=== PATIENT | female | born 1935 | race Caucasian/White ===

== ENCOUNTER 2018-07-14 09:40 | Emergency (ER) | payer MEDICARE, OTHER ==
[~2018-07-14] VITALS: Ht 154.9 cm; Wt 56.8 kg
[~2018-07-14 09:40] MED LIST: LOVASTATIN PO; TRIAMTERENE PO
[2018-07-14 09:44] VITALS: Ht 154.9 cm; Wt 56.8 kg
[2018-07-14] MEDS ORDERED: SOD CHLORIDE 0.9% 1,000 ML IV STA (10:06)
[2018-07-14] MEDS ORDERED: ASPI-817 PO (10:28)
[2018-07-14] MEDS ORDERED: SIMV40TA2 PO (10:29)
[2018-07-14] MEDS ORDERED: AMLO5TAB4 PO (10:29)
[2018-07-14] MEDS ORDERED: CHOL100062 PO (10:29)
[2018-07-14] MEDS ORDERED: UBID100C24 PO (10:30)
[2018-07-14] MEDS ORDERED: MECLIZINE 12.5 MG TAB PO ONE (10:30)
[2018-07-14] MEDS ORDERED: MECL12.574 PO (11:39)
[2018-07-14 12:21] VITALS: BP 148/88; PULSE 74; RESP 19
--- NOTE | 2018-07-14 12:57 | ERD ---
ER Documentation Chief Complaint Chief Complaint dizziness with nausea x yesterday HX of Vertigo HPI Patient is an 82-year-old female with hypertension and vertigo who presents with "extreme vertigo". The patient says that she cannot look or move without having symptoms. She got sweaty and pale. The symptoms started yesterday and were worse last night. She said that she tried her amlodipine this morning. She said that she feels better now and that the spinning has stopped. ROS All systems reviewed and are negative except as per history of present illness. Medications Home Meds Active Scripts Meclizine Hcl* (Antivert*) 12.5 Mg Tab, 25 MG PO Q6H PRN for DIZZINESS, #20 TAB Prov:VALERI SHAFER MD 07/14/18 Reported Medications Ubidecarenone (Coq-10) Unknown Strength Capsule, 1 CAP PO DAILY, CAP 07/14/18 Cholecalciferol* (Vitamin D3*) Unknown Strength Tablet, 1 TAB PO DAILY, TAB 07/14/18 Simvastatin* (Zocor*) 40 Mg Tablet, 40 MG PO QHS, #30 TAB 07/14/18 Amlodipine Besylate* (Norvasc*) 5 Mg Tablet, 5 MG PO DAILY, TAB 07/14/18 Aspirin* (Aspirin* EC) 81 Mg Tablet.dr, 81 MG PO DAILY, TAB 07/14/18 Discontinued Reported Medications [Lovastatin] No Conflict Check, PO 05/12/11 [Triamterene] No Conflict Check, PO 05/12/11 Allergies Allergies: Coded Allergies: No Known Drug Allergies (Verified Allergy, Unknown, 07/14/18) PMhx/Soc History of Surgery: Yes (HYSTRECTOMY) Anesthesia Reaction: No Hx Neurological Disorder: No Hx Respiratory Disorders: No Hx Cardiac Disorders: Yes (HYPERTENSION, HIGH CHOLESTEROL) Hx Psychiatric Problems: No Hx Alcohol Use: Yes (GLASS OF WINE DAILY) Hx Substance Use: No Hx Tobacco Use: Yes (STOPPED 30YRS AGO) Smoking Status: Current every day smoker FmHx Family History: No diabetes Physical Exam Vitals Vital Signs Date Temp Pulse Resp B/P (MAP) Pulse Ox O2 O2 Flow FiO2 Time Delivery Rate 07/14/18 98.3 74 19 148/88 100 Room Air 12:21 (108) 07/14/18 96.5 86 18 145/76 98 09:44 (99) Physical Exam Const: No acute distress Head: Atraumatic Eyes: Normal Conjunctiva ENT: Normal External Ears, Nose and Mouth. Neck: Full range of motion. No meningismus. Resp: Clear to auscultation bilaterally Cardio: Regular rate and rhythm, no murmurs Abd: Soft, non tender, non distended. Normal bowel sounds Skin: No petechiae or rashes Back: No midline or flank tenderness Ext: No cyanosis, or edema Neur: Awake and alert, cranial nerves II through XII intact, strength is 5 out of 5 in all 4 tremors, no slurred speech, no pronator drift Psych: Normal Mood and Affect Result Diagram: 07/14/18 1011 07/14/18 1011 Results 24 hrs Laboratory Tests Test 07/14/18 10:11 White Blood Count 8.4 10^3/ul Red Blood Count 5.07 10^6/ul Hemoglobin 14.5 g/dl Hematocrit 44.0 % Mean Corpuscular Volume 86.8 fl Mean Corpuscular Hemoglobin 28.6 pg Mean Corpuscular Hemoglobin Concent 33.0 g/dl Red Cell Distribution Width 14.8 % Platelet Count 304 10^3/UL Mean Platelet Volume 9.2 fl Immature Granulocytes % 0.200 % Neutrophils % % Segmented Neutrophils % (Manual) 81 % Band Neutrophils % (Manual) 4 % Lymphocytes % % Lymphocytes % (Manual) 8 % Reactive Lymphocytes % (Manual) 4 % Monocytes % % Monocytes % (Manual) 3 % Eosinophils % % Basophils % % Nucleated Red Blood Cells % 0.0 /100WBC Immature Granulocytes # 0.020 10^3/ul Neutrophils # 10^3/ul Neutrophils # (Manual) 6.8 10^3/ul Band Neutrophils # 0.3 10^3/ul Lymphocytes (Manual) 0.6 10^3/ul Lymphocytes # 10^3/ul Reactive Lymphocytes # 0.3 10^3/ul Monocytes # 10^3/ul Monocytes # (Manual) 0.2 10^3/ul Eosinophils # 10^3/ul Basophils # 10^3/ul Nucleated Red Blood Cells # 10^3/ul Platelet Estimate NORMAL Polychromasia 3+ Anisocytosis 1+ Microcytosis 1+ Prothrombin Time 12.2 Sec Prothrombin Time Ratio 1.0 INR International Normalized Ratio 0.89 Activated Partial Thromboplast Time 26.4 Sec Sodium Level 138 mmol/L Potassium Level 3.5 mmol/L Chloride Level 101 mmol/L Carbon Dioxide Level 25 mmol/L Anion Gap 12 Blood Urea Nitrogen 16 mg/dl Creatinine 0.69 mg/dl Est Glomerular Filtrat Rate mL/min mL/min Glucose Level 155 mg/dl Calcium Level 10.1 mg/dl Troponin I < 0.012 ng/ml Current Medications Medications Dose Sig/Dean Start Time Status Last (Trade) Ordered Route PRN Stop Time Admin Dose Reason Admin Sodium 1,000 ml @ Q1H STAT 07/14/18 DC 07/14/18 Chloride 1,000 mls/hr IV 10:06 10:27 07/14/18 11:05 Meclizine 25 mg ONCE ONCE 07/14/18 DC 07/14/18 HCl PO 10:30 10:27 (Antivert) 07/14/18 10:31 Procedures/MDM EKG read by me: Rate/Rhythm: Bifascicular block a rate of 76 Intervals: Normal Impression: Fascicular block without ischemia CT brain negative for bleed or mass per radiology. Patient is an 82-year-old female who presents with vertigo. Laboratory studies were basically normal. CT scan shows no sign of stroke, mass, or hemorrhage. I believe outpatient management is appropriate this time. She has no symptoms. The patient will need to follow-up closely with her primary doctor within 24-48 hours. Departure Diagnosis: Primary Impression: Vertigo Additional Impression: Dizziness Condition: Fair Patient Instructions: Vertigo, Unspecified Referrals: Your doctor Additional Instructions: Call your primary care doctor TOMORROW for an appointment during the next 1-2 days.See the doctor sooner or return here if your condition worsens before your appointment time. VALERI SHAFER MD Jul 14, 2018 12:57
== END 2018-07-14 12:22 | disposition home or self-care (01) ==
LOC: E/R 09:40
DX: R42 Dizziness and giddiness (principal); I10 Essential (primary) hypertension; F17.210 Nicotine dependence, cigarettes, uncomplicated; Z79.82 Long term (current) use of aspirin
CPT/HCPCS: 36415; 70450; 80048; 84484; 85025; 85610; 85730; 93005; 99285; J7030

== ENCOUNTER → 2018-10-21 | Outpatient (CLI) | payer MEDICARE ==
[~2018-10-21] MED LIST changes: +AMLO5TAB4 PO; +ASPI-817 PO; +CHOL100062 PO; +IOHEXOL 100 ML ONE; -LOVASTATIN PO; +MECL12.574 PO; +SIMV40TA2 PO; +SOD CHLORIDE 0.9% 100 ML ONE; -TRIAMTERENE PO; +UBID100C24 PO
== END | disposition home or self-care (01) ==
LOC: LAB 09:37
PROVIDERS: ATTEND Internal Medicine
DX: I25.10 Atherosclerotic heart disease of native coronary artery without angina pectoris (principal)
CPT/HCPCS: 70498; 82565; 84520; Q9967